=== PATIENT | male | born 1965 | race Two or more races ===

== ENCOUNTER 2018-12-30 00:02 | Emergency (ER) | payer MEDICAID, OTHER ==
[~2018-12-30] VITALS: Ht 170.2 cm; Wt 66.7 kg
[2018-12-30 01:57] LABS: Urine Bacteria FEW /hpf (None Seen); Urine Blood 1+ /uL (Negative); Urine Mucus FEW (None Seen); Urine Specific Gravity 1.022 (1.001-1.035); Urine WBC 2 /hpf (0 - 3)
[2018-12-30 05:00] VITALS: BP 156/89
== END 2018-12-30 05:05 | disposition left against medical advice (07) ==
LOC: ER 00:05
DX: R39.198 Other difficulties with micturition (principal); Z53.21 Procedure and treatment not carried out due to patient leaving prior to being seen by health care provider
CPT/HCPCS: 51702; 81001